=== PATIENT | female | born 1950 | race Caucasian/White ===

== ENCOUNTER → 2016-11-02 | Outpatient (CLI) | payer OTHER, SELFPAY ==
--- NOTE | 2016-11-03 05:27 | RAD ---
Procedure: XR CHEST 2 VIEWS Exam date: 11/02/2016 11:52 AM CDT Ordering Provider: PARAG HEADLEY Clinical Indication: Chronic obstructive pulmonary disease with (acute) exacerbation Comparison: None Findings: Cardiomediastinal silhouette is within normal limits. The lungs are clear. No pleural effusion or pneumothorax. Osseous structures are nonacute. No evidence of active tuberculosis. Impression: No acute cardiopulmonary process. Electronically signed by: Rick Myers MD 11/03/2016 5:27 AM CDT
== END | disposition home or self-care (01) ==
LOC: RAD 11:39
PROVIDERS: ATTEND Nurse Practitioner Family
DX: J44.1 Chronic obstructive pulmonary disease with (acute) exacerbation (principal)